=== PATIENT | male | born 1960 | race Caucasian/White ===

== ENCOUNTER → 2017-10-07 | Day surgery (SDC) | payer BC ==
[~2017-10-07] VITALS: Ht 185.4 cm; Wt 127.0 kg
[~2017-10-07] MED LIST: ASPIRIN 81 MG CHEW TAB PO ONE; ASPIRIN 81 MG ENTERIC COATED PO SCH; CLARITIN PO; CLOPIDOGREL BISULFATE 75 MG TAB PO ONE; CLOPIDOGREL BISULFATE 75 MG TAB PO SCH; DEXTROSE 50% SYRINGE 50 ML IV PRN; FAMOTIDINE 20 MG/2 ML VIAL IV SCH; FENTANYL CITRATE/PF 100MCG/2 ML INJ ONE; HEPARIN SOD/SOD CHLORIDE 2,000 ML ONE; INSULIN REGULAR, HUMAN 100 UNIT/1 ML 3ML VIAL SQ SCH; IOPAMIDOL 370 MG/ML 200 ML INFUS..BTL INJ ONE; LIDOCAINE HCL 2% LOCAL 20 ML VIAL ONE; LISINOPRIL10 MG; MIDAZOLAM HCL 2 MG/2 ML VIAL ONE; MORPHINE SULFATE 2 MG/ML SYR IV PRN; MORPHINE SULFATE 2 MG/ML SYR IV STA; NITROGLYCERIN 2% OINT 1 GM PKT TOP ONE; NITROGLYCERIN 2% OINT 1 GM PKT TOP SCH; ONDANSETRON HCL INJ 2 MG/ML VIAL IV PRN; ONDANSETRON HCL INJ 2 MG/ML VIAL IV STA; SODIUM CHLORIDE 0.9% 1000ML 1,000 ML IV STA; SODIUM CHLORIDE 0.9% 1000ML 1,000 ML ONE
[2017-10-07 01:15] LABS: BASOPHILS % 0.3 % (0.0-1.0); EOSINOPHILS # (AUTO) 0.4 (0.0-0.4); EOSINOPHILS % 3.1 % (0.0-6.0); HEMATOCRIT 44.4 % (38.2-49.6); HEMOGLOBIN 15.3 g/dL (14.0-18.0); LYMPHOCYTES # (AUTO) 3.5 (1.0-3.2); LYMPHOCYTES % 30.3 % (18.0-39.1); MEAN CORPUSCULAR HEMOGLOBIN 29.6 pg (28-32); MEAN CORPUSCULAR HGB CONC 34.5 g/dL (31-35); MEAN CORPUSCULAR VOLUME 85.9 fL (81-99); MONOCYTES # (AUTO) 0.8 (0.2-0.8); NEUTROPHILS # (AUTO) 6.8 (2.1-6.9); NEUTROPHILS % 59.1 % (38.7-80.0); PLATELET COUNT 241 x10e3/uL (140-360); RED BLOOD COUNT 5.17 x10e6/uL (4.3-5.7); RED CELL DISTRIBUTION WIDTH 13.2 % (11.7-14.4)
[2017-10-07 01:19] LABS: INR 0.82; PROTHROMBIN TIME 11.7 seconds (11.9-14.5)
[2017-10-07 01:20] LABS: PARTIAL THROMBOPLASTIN TIME 27.5 seconds (23.8-35.5)
[2017-10-07 01:30] LABS: ALANINE AMINOTRANSFERASE 32 IU/L (0-55); ALBUMIN 3.8 g/dL (3.5-5.0); ALBUMIN/GLOBULIN RATIO 1.1 (0.8-2.0); ALKALINE PHOSPHATASE 86 IU/L (40-150); ANION GAP 15.6 mmol/L (8-16); BLOOD UREA NITROGEN 23 mg/dL (7-26); BUN/CREATININE RATIO 20 (6-25); CARBON DIOXIDE 21 mmol/L (22-29); CHLORIDE 105 mmol/L (98-107); CREATINE KINASE 304 IU/L (30-200); CREATININE, SERUM 1.14 mg/dL (0.72-1.25); EST GLOMERULAR FILTRATION RATE > 60 ML/MIN (60-); GLUCOSE 141 mg/dL (74-118); POTASSIUM 3.6 mmol/L (3.5-5.1); SODIUM 138 mmol/L (136-145)
[2017-10-07 01:38] LABS: TROPONIN I 1.335 ng/mL (0-0.300)
--- NOTE | 2017-10-07 02:53 | Diagnostic Imaging Report ---
EXAMINATION: CHEST SINGLE (PORTABLE) INDICATION: Chest pain. COMPARISON: 08/15/2017 FINDINGS: TUBES and LINES: None. LUNGS: Lungs are well inflated. Lungs are clear. There is no evidence of pneumonia or pulmonary edema. PLEURA: No pleural effusion or pneumothorax. HEART AND MEDIASTINUM: The cardiomediastinal silhouette is unremarkable. BONES AND SOFT TISSUES: No acute osseous lesion. Soft tissues are unremarkable. UPPER ABDOMEN: No free air under the diaphragm. IMPRESSION: No acute thoracic abnormality. Signed by: Dr. Jeffrey Mckinley M.D. on 10/07/2017 2:50 AM
[2017-10-07 03:11] LABS: BILIRUBIN,URINE NEGATIVE (NEGATIVE); KETONES,URINE 2+ (NEGATIVE); LEUKOCYTE ESTERASE ,URINE NEGATIVE (NEGATIVE); NITRITE,URINE NEGATIVE (NEGATIVE); PROTEIN,URINE DIPSTICK NEGATIVE (NEGATIVE); URINE UROBILINOGEN 0.2 mg/dL (0.2 - 1)
[2017-10-07 03:13] LABS: CLARITY,URINE CLEAR (CLEAR); COLOR,URINE YELLOW (YELLOW)
[2017-10-07 03:25] LABS: BACTERIA,URINE RARE /HPF; EPITHELIAL CELLS,URINE FEW /LPF; RBC,URINE 0-5 /HPF (0-5); WBC,URINE (MAN) 0-5 /HPF (0-5)
--- NOTE | 2017-10-07 08:51 | Pre Op History & Physical ---
REASON: [id number] myocardial infarction. HISTORY: This is a 57-year-old gentleman, who is known with history of repeated SVT, hypertension, hypercholesterolemia, and diabetes mellitus. Patient followed by Dr. Thurman. Patient had 2 admissions to this institution on 2 visits in 2014 and 2016 with SVT. He was started initially on beta-blockers, but it did not help. He was seen by Dr. Ramirez. He was started on Cardizem. Regardless, patient was doing relatively well yesterday, started having severe chest pain without the tachycardia. He came to the emergency room. He got T-wave inversion in few leads, but no ST PR. Patient's cardiac enzymes ruled in for myocardial infarction with the CK-MB of 22, troponin of 1.5. Cardiac consultation is obtained. I visited the patient, who is pain free. He described his pain very typical for acute unstable coronary syndrome and myocardial infarction by enzymes. He denied having any exertional angina prior to that. He said he was doing well and he had this problem. He denied having any tachycardia with these episodes. In fact, his last episode happened once before . CURRENT MEDICATIONS 1. Aspirin 81 mg a day. 2. Lisinopril 10 mg a day. 3. Diltiazem 90 mg twice a day. 4. Metformin ER 500 mg a day. 5. Loratadine 10 mg a day. 6. Nexium 20 mg a day. 7. Multivitamin. PAST MEDICAL HISTORY 1. Hypertension. 2. Hypercholesteremia. 3. History of SVT. 4. Hay fever. 5. GERD. 6. Diabetes mellitus, diagnosed in July 2017. 7. Left foot surgery in 2000. 8. Left rotator cuff surgery in 1993. SOCIAL HISTORY: He is . He never smoked. Social alcohol drinker. ALLERGIES: PATIENT INTOLERANT TO METOPROLOL CAUSING HIM FATIGUE. FAMILY HISTORY: Mother age 55 with myocardial infarction. Father at 64 with lung cancer. Four brothers, 1 brother of myocardial infarction at age 50, another half-brother with lung cancer. One sister of breast cancer. REVIEW OF SYSTEMS GENERAL: No fever, no chills. HEENT: Unremarkable with the exception of hayfever-like symptoms at times. PULMONARY AND CARDIAC: As per acute illness. GI: GERD. No hematemesis, no melena. : No hematuria, no dysuria. NEUROMUSCULAR: No aches, no pain. PHYSICAL EXAM VITALS: Height of 6'1". Weight of 280 pounds. Blood pressure 140/80. Heart rate of 70. Respiratory rate of 18. HEENT: Pupils are reactive. NECK: No elevation of jugular venous pulsation. No bruit. CHEST: Clear to auscultation and percussion. HEART: PMI 5th left intercostal space on 1st and 2nd heart sounds. ABDOMEN: Soft with good bowel sounds. EXTREMITIES: No cyanosis, no clubbing, no edema. NEUROLOGIC: Nonfocal. LABORATORY DATA: Sodium of 138, potassium 3.6, BUN 23, creatinine of 1.4, glucose of 141. White blood cell count of 11.4, hemoglobin 15.3, hematocrit 44%, platelet count of 241,000. CK total 304, MB 22, troponin of 1.4. IMAGING: Chest x-ray. No cardiomegaly. EKG showing a few T-wave inversion, but no STEMI. IMPRESSIONS AND PLAN 1. Acute [id number] myocardial infarction. 2. History of paroxysmal supraventricular tachycardia, most likely AV ryland re-entry. 3. Hypertension. 4. Diabetes mellitus. 5. Hypercholesteremia. 6. GERD. 7. Obesity. Patient loaded already with Plavix, aspirin. He will be taken to the cardiac director of labor relations for cath for post possible intervention. Procedure, risks, benefits, alternatives are discussed and explained. Job#: [id number] PATRICIA
--- NOTE | 2017-10-07 10:26 | Operative Report ---
DATE OF PROCEDURE: October 07, 2017 TITLE OF PROCEDURE: Left cardiac catheterization. INDICATIONS: [id number] myocardial infarction. TECHNICAL DETAILS: After the usual sterile preparation and draping procedure, intravenous Versed and fentanyl given for sedation, and local Xylocaine for anesthesia. A Claudio left 5 and 3DRC catheter engaged the coronary. Pigtail for hemodynamic measurement and left ventriculogram. At the end of the procedure, sheath was removed. Hemostasis achieved manually. No complication and no blood loss. RESULTS 1. Coronary angiogram: Left main is a long artery. Several plaques were noted. There is subtotal LAD lesion with DAWSON 0 to 1 flow. 2. Circumflex coronary artery with 50% proximal lesion. 3. Circumflex coronary artery small artery with 80% lesion. 4. Right coronary artery torturous. Distally, very large PLV and PDA branch 99%. 5. Left ventriculogram: The right anterior oblique view showed normal size ventricle with an ejection fraction of 60%. 6. Hemodynamics: Aortic pressure 130/80. LV pressure 130/20. IMPRESSION 1. Three-vessel coronary artery disease. 2. Preserved left ventricular systolic function. 3. Ectatic arteries. RECOMMENDATIONS: Coronary artery bypass surgery to the mid-LAD and to the very large branch of the right coronary artery, PLV, PDA and possibly to small obtuse marginal. COMPLICATIONS: None. BLOOD LOSS: None. Job#: [id number] CT
== END | disposition short-term general hospital (02) ==
LOC: ER 00:48 → ERHOLD 04:35 → UNDOADMIN 04:35 → CATH LAB 08:27
PROVIDERS: ATTEND Internal Medicine Cardiovascular Disease
DX: I21.4 Non-ST elevation (NSTEMI) myocardial infarction (principal); I25.10 Atherosclerotic heart disease of native coronary artery without angina pectoris; I77.1 Stricture of artery; I47.1 Supraventricular tachycardia; I10 Essential (primary) hypertension; E11.9 Type 2 diabetes mellitus without complications; J30.1 Allergic rhinitis due to pollen; K21.9 Gastro-esophageal reflux disease without esophagitis; E66.9 Obesity, unspecified; Z79.82 Long term (current) use of aspirin; Z82.49 Family history of ischemic heart disease and other diseases of the circulatory system
CPT/HCPCS: 36415; 71010; 77002; 80053; 81001; 82550; 82553; 83880; 84484; 85025; 85610; 85730; 87086; 93005; 93458; 99284; C1766; J2001; J2250; J2270; J2405; J7030; Q9967; 36140; 93452

== ENCOUNTER → 2021-08-14 | Day surgery (SDC) | payer BC ==
[2021-08-11 11:20] LABS: BASOPHILS % 0.5 % (0.0-1.0); EOSINOPHILS # (AUTO) 0.2 (0.0-0.4); EOSINOPHILS % 2.9 % (0.0-6.0); HEMATOCRIT 46.9 % (38.2-49.6); HEMOGLOBIN 15.5 g/dL (14.0-18.0); LYMPHOCYTES # (AUTO) 2.7 (1.0-3.2); LYMPHOCYTES % 35.5 % (18.0-39.1); MEAN CORPUSCULAR HEMOGLOBIN 29.5 pg (28-32); MEAN CORPUSCULAR VOLUME 89.2 fL (81-99); MONOCYTES # (AUTO) 0.6 (0.2-0.8); MONOCYTES % 7.8 % (4.4-11.3); NEUTROPHILS # (AUTO) 4.1 (2.1-6.9); NEUTROPHILS % 53.2 % (38.7-80.0); PLATELET COUNT 224 x10e3/uL (140-360); RED BLOOD COUNT 5.26 x10e6/uL (4.3-5.7); RED CELL DISTRIBUTION WIDTH 13.6 % (11.7-14.4)
[~2021-08-14] MED LIST changes: -ASPIRIN 81 MG CHEW TAB PO ONE; -ASPIRIN 81 MG ENTERIC COATED PO SCH; +ASPIRIN81 MG PO; +ATORVASTATIN CA20 MG PO; +BIOTIN0.5 GM; -CLOPIDOGREL BISULFATE 75 MG TAB PO ONE; -CLOPIDOGREL BISULFATE 75 MG TAB PO SCH; -DEXTROSE 50% SYRINGE 50 ML IV PRN; -FAMOTIDINE 20 MG/2 ML VIAL IV SCH; -FENTANYL CITRATE/PF 100MCG/2 ML INJ ONE; -HEPARIN SOD/SOD CHLORIDE 2,000 ML ONE; +ICAPS TABLET1 EACH; -INSULIN REGULAR, HUMAN 100 UNIT/1 ML 3ML VIAL SQ SCH; -IOPAMIDOL 370 MG/ML 200 ML INFUS..BTL INJ ONE; +JARDIANCE25 MG; -LIDOCAINE HCL 2% LOCAL 20 ML VIAL ONE; +LOSARTAN POTASS25 MG PO; +MAGNESIUM; +MENS MULTIVITAMIN; +METFORMIN HCL500 MG PO; +METOPROLOL SUCC25 MG PO; -MIDAZOLAM HCL 2 MG/2 ML VIAL ONE; -MORPHINE SULFATE 2 MG/ML SYR IV PRN; -MORPHINE SULFATE 2 MG/ML SYR IV STA; +NEXIUM20 MG PO; -NITROGLYCERIN 2% OINT 1 GM PKT TOP ONE; -NITROGLYCERIN 2% OINT 1 GM PKT TOP SCH; +OIL OF OREGAN1500 MG; -ONDANSETRON HCL INJ 2 MG/ML VIAL IV PRN; -ONDANSETRON HCL INJ 2 MG/ML VIAL IV STA; +SAW PALMETTO450 MG; -SODIUM CHLORIDE 0.9% 1000ML 1,000 ML IV STA; -SODIUM CHLORIDE 0.9% 1000ML 1,000 ML ONE
[2021-08-14 14:45] VITALS: BP 100/68
== END | disposition home or self-care (01) ==
LOC: OR 10:21
PROVIDERS: ATTEND Internal Medicine Gastroenterology
DX: Z12.11 Encounter for screening for malignant neoplasm of colon (principal); D12.2 Benign neoplasm of ascending colon; D12.3 Benign neoplasm of transverse colon; K57.30 Diverticulosis of large intestine without perforation or abscess without bleeding; K64.8 Other hemorrhoids; I25.810 Atherosclerosis of coronary artery bypass graft(s) without angina pectoris; I25.2 Old myocardial infarction; E11.9 Type 2 diabetes mellitus without complications; I10 Essential (primary) hypertension; E78.00 Pure hypercholesterolemia, unspecified; Z01.810 Encounter for preprocedural cardiovascular examination; Z01.812 Encounter for preprocedural laboratory examination; Z20.822 Contact with and (suspected) exposure to COVID-19; Z79.84 Long term (current) use of oral hypoglycemic drugs; Z79.82 Long term (current) use of aspirin; Z68.35 Body mass index [BMI] 35.0-35.9, adult; Z95.1 Presence of aortocoronary bypass graft
CPT/HCPCS: 36415 ×2; 45380; 45385; 82948; 85025; 93005; U0002

== ENCOUNTER → 2024-12-26 | Day surgery (SDC) | payer BC ==
[2024-12-21 08:51] LABS: BASOPHILS # (AUTO) 0.1 (0.0-0.1); BASOPHILS % 0.8 % (0.0-1.0); EOSINOPHILS # (AUTO) 0.3 (0.0-0.4); EOSINOPHILS % 4.1 % (0.0-6.0); HEMATOCRIT 49.7 % (38.2-49.6); LYMPHOCYTES # (AUTO) 1.8 (1.0-3.2); LYMPHOCYTES % 26.8 % (18.0-39.1); MEAN CORPUSCULAR HGB CONC 34.2 g/dL (31-35); MEAN CORPUSCULAR VOLUME 87.7 fL (81-99); MONOCYTES # (AUTO) 0.5 (0.2-0.8); MONOCYTES % 7.1 % (4.4-11.3); NEUTROPHILS # (AUTO) 4.1 (2.1-6.9); NEUTROPHILS % 60.9 % (38.7-80.0); PLATELET COUNT 236 x10e3/uL (140-360); RED BLOOD COUNT 5.67 x10e6/uL (4.3-5.7); RED CELL DISTRIBUTION WIDTH 13.5 % (11.7-14.4); WHITE BLOOD COUNT 6.65 x10e3/uL (4.8-10.8)
[~2024-12-26] MED LIST changes: +ACETAMINOPHEN 1000 MG/100 ML 100 ML IV ONE; +DEXAMETHASONE SOD PHOS INJ 4 MG/ML SDV ONE; +FENTANYL CITRATE/PF 100MCG/2 ML INJ ONE; +KETOROLAC TROMETHAMINE 30 MG/ML VIAL ONE; +LIDOCAINE HCL 2% LOCAL INJ 5 ML SDV VIAL INJ ONE; +MIDAZOLAM HCL 2 MG/2 ML VIAL ONE; +ONDANSETRON HCL INJ 2MG/ML 2ML 2 MG/ML VIAL ONE; +PROPOFOL IV EMULSION 10 MG/ML 20 ML VIAL ONE; +SEVOFLURANE INHAL SOLN 250 ML PEN BTL ONE
[2024-12-26] MEDS: LACTATED RINGER'S 1,000 ML ONE (05:53)
[2024-12-26] MEDS: CEFAZOLIN SODIUM 2 GM ONE (05:53)
[2024-12-26 07:39] VITALS: TEMP 97
[2024-12-26 08:40] VITALS: BP 144/88; PULSE 61; RESP 16; O2SAT 96
== END | disposition home or self-care (01) ==
LOC: OR 05:18
PROVIDERS: ATTEND Podiatrist Foot & Ankle Surgery
DX: M20.41 Other hammer toe(s) (acquired), right foot (principal); S93.521A Sprain of metatarsophalangeal joint of right great toe, initial encounter; I25.810 Atherosclerosis of coronary artery bypass graft(s) without angina pectoris; I10 Essential (primary) hypertension; E66.9 Obesity, unspecified; I25.2 Old myocardial infarction; E78.5 Hyperlipidemia, unspecified; R73.03 Prediabetes; Z01.812 Encounter for preprocedural laboratory examination; Z01.818 Encounter for other preprocedural examination; Z79.82 Long term (current) use of aspirin; Z79.84 Long term (current) use of oral hypoglycemic drugs; Z79.899 Other long term (current) drug therapy; Z95.1 Presence of aortocoronary bypass graft
CPT/HCPCS: 28285; 36415; 71046; 85025; C1713; J0131; J1100; J1885; J2003; J2250; J2405; J2704; J3010; J7121